=== PATIENT | male | born 1975 | race Caucasian/White ===

== ENCOUNTER 2018-03-15 20:50 | Emergency (ER) | payer MEDICARE, MEDICAID ==
[~2018-03-15] VITALS: Ht 167.6 cm; Wt 79.5 kg
[2018-03-15] MEDS ORDERED: OMEP20 PO (20:57)
[2018-03-15] MEDS ORDERED: ALBU8HFA IH (20:57)
[2018-03-15] MEDS ORDERED: 0.9% SODIUM CHLORIDE 5 ML NEB SOLUTION NEB ONE (21:28)
[2018-03-15] MEDS ORDERED: ALBUTEROL SULFATE 2.5 MG/0.5 ML NEB SOLUTION NEB ONE (21:30)
[2018-03-15] MEDS ORDERED: IPRATROPIUM BROMIDE 0.5 MG/2.5 ML NEB SOLUTION NEB ONE (21:30)
[2018-03-15] MEDS ORDERED: AZITHROMYCIN 250 MG TABLET PO ONE (22:45)
[2018-03-15] MEDS ORDERED: PredniSONE 20 MG TABLET PO ONE (22:45)
[2018-03-15] MEDS ORDERED: ALBUTEROL SULFATE HFA 90 MCG/PUFF 8 GM INHALER IH ONE (22:45)
[2018-03-15 23:04] VITALS: BP 159/98
== END 2018-03-15 23:10 | disposition home or self-care (01) ==
LOC: EMS 20:52
DX: J45.909 Unspecified asthma, uncomplicated (principal); K21.9 Gastro-esophageal reflux disease without esophagitis; Z79.899 Other long term (current) drug therapy
CPT/HCPCS: 71045; 94640; 99284; J7512; J3535